=== PATIENT | male | born 1990 | race African-American/Black ===

== ENCOUNTER 2019-11-21 04:30 | Emergency (ER) | payer SELFPAY ==
[2019-11-21 04:38] VITALS: BP 123/85; PULSE 118; RESP 20; TEMP 37.8; O2SAT 99; BMI 26.6
--- NOTE | 2019-11-21 04:53 | XR_ITS ---
WS: [id number] CHEST XRAY TECHNIQUE: Portable chest. CLINICAL INFORMATION: cough COMPARISON: None. FINDINGS: Heart: Normal cardiac silhouette. Lungs: Lungs are clear. No consolidation or pleural effusion. Bones: Normal visualized bony structures. XR/XR chest 1V portable [id number] IMPRESSION: No acute chest findings
--- NOTE | 2019-11-21 05:07 | W.ED.FEVER ---
HPI - Fever General: Chief Complaint: Fever Stated Complaint: CONGESTION; FEVER; LACK OF TASTE Time Seen by Provider: 11/21/19 04:45 History of Present Illness: HPI Narrative: Christian is a 29-year-old male who comes in with a one-day history of cough, fever, congestion, loss of sense of smell and loss of sense of taste. Patient has no known covert exposures. He does not believe he is been around anyone ill. He states he has had a sore throat as well. He denies any history of any chronic medical problems or any other complaints. He is unaware of anything that makes his symptoms better or worse. Associated symptoms: Reports nasal congestion; Deny abdominal pain, flank pain, chills, chest pain, confusion, diarrhea, dysuria, extremity pain, headache(s), nausea, night sweats or vomiting Review of Systems Const: Denies: fever(s), chills, body aches, fatigue, malaise, night sweats or diaphoresis Eyes: Denies: change in vision, blurry vision or blind spots ENMT: Reports: throat pain, ear or mastoid pain, nasal discharge and nasal congestion Card: Denies: chest pain, palpitations, irregular heart rhythm, lightheadedness, syncope, pre-syncope, dyspnea on exertion or orthopnea Resp: Reports: dyspnea, productive cough, non-productive cough and chest congestion; Denies: wheezing or hemoptysis GI: Denies: abdominal pain, nausea, vomiting, hematemesis, coffee ground emesis, heartburn, diarrhea, constipation, GI cramping, hematochezia or melena : Denies: flank pain, dysuria, urinary frequency, urinary urgency, oliguria, urinary incontinence or hematuria Musc: Denies: neck pain, back pain, extremity pain, extremity swelling, joint pain, joint swelling, joint redness, joint warmth or joint stiffness Skin/Breast: Denies: rash, pruritus, erythema, skin tenderness or jaundice Neuro: Denies: headache(s), numbness in extremities, weakness in extremities, sensory changes, lack of coordination, difficulty walking, dizziness, vertigo, confusion or Slurred speech present Endo: Denies: polyuria, polydipsia, tired all the time, cold intolerance, excessive sweating, flushing, hot flashes or heat intolerance Chaz/Lymph: Denies: easy bruising, easy bleeding, petechiae, purpura or enlarged lymph nodes All/Imm: Denies: urticaria, throat swelling, tongue swelling, facial swelling or acute wheezing PFSH ED PFSH: Medical History No pertinent past medical history Surgical History No history of previous surgery Social History Smoking and tobacco status: current every day smoker Physical Exam Const: COMMON NORMALS: no acute distress, patient oriented x3, no limitations, healthy appearing and well nourished EXAM LIMITATIONS: no altered mental status GENERAL APPEARANCE: cooperative, well kempt and well developed HENMT: COMMON NORMALS: normocephalic, atraumatic, hearing grossly normal bilaterally, external ears normal, EAC's normal, Normal external nose present and moist oral mucous membranes HEAD & SCALP: normal to inspection, normocephalic and atraumatic FACE & SINUS: normal facial exam and face symmetric NOSE: Normal external nose present and Nasal discharge present EXTERNAL EAR: Yes external ears normal EXTERNAL AUDITORY CANAL: EAC's normal THROAT: posterior oropharynx abnormal erythema Eye: COMMON NORMALS: Equal, round and reactive pupils present, EOMs intact bilaterally, conjunctivae normal and no scleral icterus GENERAL EYE: appearance normal, both eyes and all related structures ALIGNMENT: Yes alignment normal PERIORBITAL: periorbital findings normal EYELID: eyelids normal CONJUNCTIVA: Yes conjunctivae normal SCLERA: sclerae normal PUPIL: Yes Equal, round and reactive pupils present Neck/C-Spine: COMMON NORMALS: full ROM, no lymphadenopathy, supple, no meningeal signs and no JVD GENERAL: Yes normal visual inspection and Yes trachea midline CERVICAL SPINE: Yes cervical ROM normal Chest: COMMONS NORMALS: normal inspection of the chest and normal palpation of entire chest wall Resp: COMMON NORMALS: normal respiratory effort, No retractions, No use of accessory muscles and clear to auscultation bilaterally EFFORT & INSPECTION: Yes able to speak in complete sentences AUSCULTATION: clear to auscultation bilaterally, no crackles, no rales, rhonchi and no wheezes Cardio: COMMON NORMALS: no JVD, regular rhythm, S1 normal heart sound present, S2 normal heart sound present, No gallops present (Cardio), No clicks present (Cardio), No murmurs present (Cardio) and No rub (Cardio) RATE: tachycardic RHYTHM: regular rhythm HEART SOUNDS: S1 normal heart sound present, S2 normal heart sound present, no click, no gallops, no murmurs and no rubs GI: COMMON NORMALS: Soft to palpation, non-tender, No hepatosplenomegaly present and no masses PALPATION: Yes Soft to palpation, No Tenderness to palpation present (GI), No Guarding due to palpation present (GI), No Rigid due to palpation, Yes No hepatosplenomegaly present, No Hernia present, No Palpable mass present and No Pulsatile mass present : COMMON NORMALS: Yes no CVA tenderness BLADDER/KIDNEY EXAM: Yes no CVA tenderness Back/Pelvis: COMMON NORMALS: no CVA tenderness, thoracic and lumbar spine normal to inspection, no thoracic nor lumbar tenderness and thoraco-lumbar ROM normal Extremity: COMMON NORMALS: normal to inspection, full ROM, capillary refill normal, no joint enlargement, no clubbing, cyanosis or edema and no calf tenderness Neuro: COMMON NORMALS: patient oriented x3, CN's II-XII intact bilaterally, moves all extremities, no focal motor deficits and no sensory deficits noted MENINGEAL SIGNS: Yes no meningeal signs SPEECH: speech normal Psych: COMMON NORMALS: mental status grossly normal, Normal thought process present, cooperative, normal affect, speech normal and activity/motor behavior normal APPEARANCE: Yes well kempt SPEECH: Yes normal speech THOUGHT PROCESS: Normal thought process present Skin: COMMON NORMALS: no rashes or lesions noted, turgor normal, no jaundice, no petechiae and no mottling GENERAL SKIN EXAM: no rashes or lesions noted and turgor normal Course Vital Signs: Vital signs: Vital Signs Temperature 100.0 F H 11/21/19 04:38 Pulse Rate 118 H 11/21/19 04:38 Respiratory Rate 20 H 11/21/19 04:38 Blood Pressure 123/85 11/21/19 04:38 Pulse Oximetry 99 11/21/19 04:38 MDM - Fever MDM Narrative: Medical decision making narrative: Patient's chest x-ray is negative, his flu swab is negative and his strep is negative. Clinically he acts as though he has the COVID virus. He appears well enough to go home and does not appear septic. He agrees to return to the symptoms change or worsen and he understands he will be contacted in 2 days with the results of his test. He states he is able to self quarantine at home. Lab Data: Labs: Lab Results 11/21/19 11/21/19 Range/Units 05:10 05:10 Influenza Type A A g Negative (Negative) Influenza Type B A g Negative (Negative) Group A Strep Rapi d Negative (Negative) Imaging Data^: CXR: My impression: No acute cardiopulmonary findings. Discharge Plan Discharge Patient Disposition: Home, Self-Care Clinical Impression: Viral infection Condition: Stable Prescriptions: No Action No Known Home Medications RF: 0 Discharge Orders: Discharge Order (Routine); Ordered 11/21/19 Ordered By: Shaneka Rodriguez Referrals: Michael Johnson MD [Physician] - 1-3 days Discharge Diet: Advance as tolerated Discharge Activity: Limit activity as instructed Patient Instructions: Viral Syndrome (ED) Activity Restrictions/Additional Instructions: Please return to the ER immediately for any of the signs or symptoms listed on your discharge instruction sheets, worsening/changing of your symptoms, you are not getting better as quickly as expected, or for ANY other cause or concerns. Keep yourself at home and away from people as if you have the COVID virus you are highly contagious. If you worsen at all please return to the ER for recheck and reevaluation. We will contact you in 2 days with the results of your test. Coding Level of Care Code ED Drafter Landscape for Denis Fwshadia Exam Comprehensive
[2019-11-21 05:38] LABS: Rapid Strep A Test Negative (Negative)
[2019-11-21 05:52] LABS: Influenza A by IFA Negative (Negative); Influenza B by IFA Negative (Negative)
[2019-11-22 19:06] LABS: Quest SARS-CoV-2 RNA NOT DETECTED (NOT DETECTED)
== END 2019-11-21 06:12 | disposition home or self-care (01) ==
PROVIDERS: Emergency Provider Emergency Medicine
DX: B34.9 Viral infection, unspecified (principal); F17.210 Nicotine dependence, cigarettes, uncomplicated
CPT/HCPCS: 12345; 71045; 87081; 87635; 87804; 87880; 99282; 99283

== ENCOUNTER 2020-09-10 00:03 | Emergency (ER) | payer SELFPAY ==
[2020-09-10 00:04] VITALS: BP 110/90; PULSE 85; RESP 16; TEMP 36.8; O2SAT 95; BMI 27.1
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
[2020-09-10 00:15] VITALS: BP 110/90; PULSE 85; RESP 18; O2SAT 95
[2020-09-10] MEDS: HYDROcodone-acetaminophen 5-325 mg Tablet 1 TAB PO (00:34)
[2020-09-10 00:58] LABS: Add Urine Microscopic? NO
[2020-09-10 01:05] LABS: Urine Appearance Clear (CLEAR); Urine Color Yellow (Yellow); pH Urine 7 (5-7)
[2020-09-10 01:06] LABS: Bilirubin Urine Neg (Negative); Blood Urine Neg (Negative); Glucose Urine UA Norm (Normal); Ketones Urine Negative (Negative); Leukocyte Esterase Urine Negative (Negative); Nitrate Urine Negative (Negative); Protein Urine Neg (Negative); Urobilinogen Urine Norm (Negative)
[2020-09-10 01:08] VITALS: BP 116/90; PULSE 91; O2SAT 98
== END 2020-09-10 01:12 | disposition home or self-care (01) ==
PROVIDERS: Emergency Provider Emergency Medicine
DX: S39.012A Strain of muscle, fascia and tendon of lower back, initial encounter (principal); S09.8XXA Other specified injuries of head, initial encounter; F17.210 Nicotine dependence, cigarettes, uncomplicated; V89.2XXA Person injured in unspecified motor-vehicle accident, traffic, initial encounter
CPT/HCPCS: 70450; 72100; 81003; 99283

== ENCOUNTER 2024-11-05 10:22 | Emergency (ER) | payer OTHER, SELFPAY ==
[2024-11-05 10:25] VITALS: BP 135/99; PULSE 64; RESP 14; TEMP 36.7; O2SAT 99; BMI 29.8
--- NOTE | 2024-11-05 10:37 | ED_ITS ---
HPI - Extremity Problem General: Chief complaint: Extremity Problem,Nontraumatic Stated complaint: lft hip pain Time Seen by Provider: 11/05/24 10:32 History of Present Illness: 34-year-old male presents with left hip discomfort and buttock discomfort. Patient injured his hip and had a hip replacement about 2 years ago. He just are going back to work couple weeks ago. He reports that he is got discomfort from the moving bed and a new activity. No new injury. Associated symptoms: Deny chest pain or fever(s) Related Data Previous Rx's ?Medication ?Instructions ?Recorded cyclobenzaprine 5 mg tablet 5 mg PO TID PRN muscle spa sm #20 11/05/24 tabs naproxen 500 mg tablet 500 mg PO BID PRN pain #30 t abs 11/05/24 Allergies Allergy/AdvReac Type Severity Reaction Status Date / Time No Known Allergies Allergy Verified 11/05/24 10:31 Review of Systems Const: Denies: fever(s) or chills Card: Denies: chest pain or palpitations Resp: Denies: dyspnea Musc: Reports: joint pain and other (Please see HPI) Neuro: Denies: headache(s) or numbness in extremities PFS ED PFSH: Medical History (Updated 11/05/24 @ 10:39 by Artem Dia DO) No pertinent past medical history Surgical History No history of previous surgery Social History Smoking and tobacco/nicotine status: current every day tobacco/nicotine user Physical Exam Const: COMMON NORMALS: no acute distress, patient oriented x3 and alert Resp: COMMON NORMALS: normal respiratory effort and clear to auscultation bilaterally AUSCULTATION: clear to auscultation bilaterally Cardio: COMMON NORMALS: regular rate and regular rhythm RATE: regular rate RHYTHM: regular rhythm Extremity: NARRATIVE EXTREMITY EXAM: Mild tenderness left hip and buttock Neuro: COMMON NORMALS: patient oriented x3 SENSORIUM/ORIENTATION: Yes alert Course Vital Signs: Vital signs: Vital Signs Temperature 98.1 F 11/05/24 10:25 Pulse Rate 86 11/05/24 11:13 Respiratory Rate 14 11/05/24 10:25 Blood Pressure 131/86 11/05/24 11:13 Pulse Oximetry 98 11/05/24 11:13 Oxygen Delivery Me thod Room Air 11/05/24 10:45 MDM - Extremity (Nontraumatic) Medical Decision Making Patient's x-ray was ordered reviewed and shows no acute findings. Patient's symptoms are likely a result of some mild overuse and restarting of activity with just some generalized muscle soreness. Discussed with patient supportive care need to use [id number], gentle stretching, may need to follow-up with a primary care provider and do some mild PT as he is getting back to doing activities again. Patient was stable and discharged home Lab Data Radiology Impressions Hip/Pelvis X-Ray 11/05/24 10:37 IMPRESSION: 1. No acute findings. 2. Prior surgical changes as described. XR interpretation done by ED provider, pending radiology final review Discharge Plan Discharge Patient Disposition: Home Clinical Impression: Repetitive strain injury of left hip Condition: Stable Prescriptions: New cyclobenzaprine 5 mg tablet 5 mg PO TID PRN (Reason: muscle spasm) Qty: 20 0RF naproxen 500 mg tablet 500 mg PO BID PRN (Reason: pain) Qty: 30 0RF Discharge Orders: Discharge ED (Routine); Ordered 11/05/24 Ordered By: Artem Dia Discharge Diet: Usual diet Discharge Activity: Increase activity as tolerated Patient Instructions: Bursitis - Hip, Hip Sprain (ED), Lower Back Exercises (ED), Core Strengthening Exercises (ED), Opioid Safety, Pain Management Activity Restrictions/Additional Instructions: Please start gentle stretching exercises of left hip you may also use [id number] Voltaren/diclofenac cream or 4% topical lidocaine with menthol cream gel or patch in addition to your prescribed medications. Do not use any [id number] ibuprofen or Aleve while taking the prescribed medications. Follow-up with your primary care provider if symptoms are not improving over the next couple days and consider physical therapy to help with strengthening and stretching exercises due to increased activity Print Language: Czech Coding Level of Care Code ED Aircraft Detail Draftsperson for Denis Lewis
--- NOTE | 2024-11-05 10:37 | XRR_ITS ---
PROCEDURE INFORMATION: Exam: XR Left Hip Exam date and time: 11/05/2024 10:41 AM Age: 34 years old Clinical indication: Prior surgery; Surgery date: 6+ months; Surgery type: Left pelvis/femur; PT presents with complaint of left hip pain. PT states he had hip surgery 2 years ago and states his new job is straining his hip. PT denies injury to hip. PT reports taking motrin without relief. PT ambulated to treatment room, no gait issues noted. TECHNIQUE: Imaging protocol: Radiologic exam of the left hip. Views: 2 or 3 views hip with pelvis when performed. COMPARISON: CR XR lumbar spine 2-3V* [id number] 09/10/2020 12:23 AM FINDINGS: Bones/joints: Prior surgical changes involving the left acetabulum are seen. Intramedullary riri and proximal fixation screws in the left femur are seen. Chronic femoral mid shaft fracture. No acute fracture or joint dislocation. Soft tissues: Unremarkable. XR/XR hip LT 2-3V wo/w pel* [id number] IMPRESSION: 1. No acute findings. 2. Prior surgical changes as described.
[2024-11-05 10:45] VITALS: BP 134/89; PULSE 69; O2SAT 100
[2024-11-05] MEDS: ketorolac 30 mg/mL INJ IM (10:52)
[2024-11-05 11:13] VITALS: BP 131/86; PULSE 86; O2SAT 98
== END 2024-11-05 11:15 | disposition home or self-care (01) ==
PROVIDERS: Emergency Provider Student in an Organized Health Care Education/Training Program
DX: S76.012A Strain of muscle, fascia and tendon of left hip, initial encounter (principal); Z72.0 Tobacco use; Z96.642 Presence of left artificial hip joint; X58.XXXA Exposure to other specified factors, initial encounter
CPT/HCPCS: 73502; 96372; 99284; J1885